=== PATIENT | female | born 1970 | race Caucasian/White ===

== ENCOUNTER 2023-03-05 08:01 | Day surgery (SDC) | payer OTHER ==
[~2023-03-05] VITALS: Ht 177.8 cm; Wt 70.6 kg
[~2023-03-05 08:01] MED LIST: LISI1TAB53 PO; VENL75CA61 PO
[2023-03-05 08:24] VITALS: BP 102/72; PULSE 101; RESP 12; RESP 14; TEMP 98.1; O2SAT 98; O2SAT 99
[2023-03-05 08:58] VITALS: BP 102/72; PULSE 101; RESP 14; O2SAT 99
[2023-03-05 09:07] VITALS: BP_SYST 102; BP_DIAS 29; BP_DIAS 72; PULSE 101; PULSE 93; RESP 14; O2SAT 99
[2023-03-05 09:22] VITALS: BP 101/76; PULSE 76; RESP 14; O2SAT 100
[2023-03-05 09:37] VITALS: BP 102/75; PULSE 79; RESP 14; O2SAT 100
== END 2023-03-05 09:45 | disposition home or self-care (01) ==
LOC: SSTAY O 08:01
PROVIDERS: ATTEND Radiology Diagnostic Radiology
DX: J90 Pleural effusion, not elsewhere classified (principal); C79.51 Secondary malignant neoplasm of bone; Z85.3 Personal history of malignant neoplasm of breast; Z90.13 Acquired absence of bilateral breasts and nipples; Z79.899 Other long term (current) drug therapy
CPT/HCPCS: 32555; C1729

== ENCOUNTER 2023-05-10 07:50 | Day surgery (SDC) | payer BC ==
[2023-05-10] VITALS (7 sets, daily range): BP systolic 120–135; BP diastolic 88–95; PULSE 79–112; RESP 14–20; O2SAT 95–97
[~2023-05-10] VITALS: Ht 177.8 cm; Wt 70.0 kg
[2023-05-10] MEDS ORDERED: albumin 25% 100mL bottle x 1 IV PRN (08:10)
== END 2023-05-10 09:45 | disposition home or self-care (01) ==
LOC: SSTAY O 07:50
PROVIDERS: ATTEND Radiology Diagnostic Radiology
DX: J90 Pleural effusion, not elsewhere classified (principal); R06.02 Shortness of breath; Z85.3 Personal history of malignant neoplasm of breast; Z85.830 Personal history of malignant neoplasm of bone; Z79.899 Other long term (current) drug therapy; Z90.13 Acquired absence of bilateral breasts and nipples
CPT/HCPCS: 32555; C1729